=== PATIENT | male | born 1990 | race Hispanic/Latino ===

== ENCOUNTER 2019-05-20 10:16 | Emergency (ER) | payer OTHER ==
--- NOTE | 2019-05-20 10:27 | EDM.PDOC ---
ED HPI GENERAL MEDICAL PROBLEM - General Chief Complaint: Head Injury Stated Complaint: HEAD INJURY Time Seen by Provider: 05/20/19 10:27 - History of Present Illness INITIAL COMMENTS - FREE TEXT/NARRATIVE: 29-year-old male presents the emergency room with a head injury. At approximately 830 this morning the patient slipped on the ice fell backwards striking his head on the hard ground. He was definitely startled he is unsure about LOC. He is having increasing dizziness he had blurred vision immediately after this occurred but this seems to be getting better. No prior history of head injury. Patient denies any neck pain or other injuries associated with this unfortunate fall. Headache Pain Score (Numeric/FACES): 9 - Related Data Allergies Allergy/AdvReac Type Severity Reaction Status Date / Time No Known Allergies Allergy Verified 05/20/19 10:24 Home Meds: Home Meds . [No Known Home Meds] 05/20/19 [History] Past Medical History - Past Health History Medical/Surgical History: Denies Medical/Surgical History - Infectious Disease History Infectious Disease History: Reports: None Social & Family History - Tobacco Use Smoking Status *Q: Current Every Day Smoker Years of Tobacco use: 9 Packs/Tins Daily: 0.7 - Caffeine Use Caffeine Use: Reports: Coffee, Energy Drinks - Recreational Drug Use Recreational Drug Use: No ED ROS GENERAL - Review of Systems Review Of Systems: See Below Constitutional: Reports: No Symptoms HEENT: Reports: Vertigo, Vision Change Respiratory: Reports: No Symptoms Cardiovascular: Reports: No Symptoms GI/Abdominal: Reports: No Symptoms : Reports: No Symptoms Musculoskeletal: Reports: No Symptoms Neurological: Reports: Headache (Is getting worse over time with increasing dizziness) ED EXAM, HEAD INJURY - Physical Exam Exam: See Below Exam Limited By: No Limitations General Appearance: Alert, Mild Distress (The dizziness) Head: Normocephalic Eyes: Bilateral Eye: EOMI, Normal Inspection, PERRL Ears: Normal External Exam, Normal Canal, TM Obscured by Cerumen Nose: Normal Inspection, Normal Mucousa, No Blood Throat/Mouth: Normal Inspection, Normal Lips, Normal Teeth, Normal Gums, Normal Oropharynx, Normal Voice, No Airway Compromise Neck: Non-Tender, Full Range of Motion, Normal Alignment, Normal Inspection Respiratory: No Respiratory Distress, Lungs Clear, Normal Breath Sounds Cardiovascular: Regular Rate, Rhythm, No Edema, No Murmur GI/Abdominal Exam: Normal Bowel Sounds, Soft, Non-Tender Back Exam: Normal Inspection. No: CVA Tenderness (L), CVA Tenderness (R) Extremities: Normal Inspection Neurologic: Other (Nerves II through XII grossly intact. All muscle groups in the upper and lower extremities are equal and appropriate bilaterally. Deep tendon reflexes are equal and appropriate at the brachioradialis and patella tendons bilaterally cerebellar testing is entirely within normal limits.) - Ismael Coma Score Best Eye Response (Ismael): (4) Open Spontaneously Best Verbal Response (Ismael): (5) Oriented Best Motor Response (Ismael): (6) Obeys Commands Course - Vital Signs Last Recorded V/S: Last Vital Signs Temp 36.7 C 05/20/19 10:21 Pulse 78 05/20/19 10:21 Resp 16 05/20/19 10:21 BP 153/90 H 05/20/19 10:21 Pulse Ox 96 05/20/19 10:21 - Orders/Labs/Meds Orders: Active Orders 24 hr Category Date Time Status Acetaminophen [Tylenol] Med 05/20/19 12:33 Once 975 mg PO NOW ONE - Re-Assessments/Exams Free Text/Narrative Re-Assessment/Exam: 05/20/19 12:[address] was unremarkable. The patient still has a headache we will give him some Tylenol and discharge. Departure - Departure Time of Disposition: 12:35 Disposition: Home, Self-Care 01 Clinical Impression: Head injury, Concussion injury of brain - Discharge Information Referrals: PCP,None [Primary Care Provider] - Forms: ED Department Discharge, ED Return to Work/School Form Additional Instructions: Return to the emergency room with any questions problems or worsening symptoms. No strenuous activity no prolonged screen time such as TV or computer use. Get as much rest as you need. 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 Sepsis Event Note - Evaluation Sepsis Screening Result: No Definite Risk - Focused Exam Vital Signs: Vital Signs Temp Pulse Resp BP Pulse Ox 05/20/19 10:21 36.7 C 78 16 153/90 H 96 Date Exam was Performed: 05/20/19 Time Exam was Performed: 12:34 - My Orders Last 24 Hours: My Active Orders 05/20/19 12:33 Acetaminophen [Tylenol] 975 mg PO NOW ONE - Assessment/Plan Last 24 Hours: My Active Orders 05/20/19 12:33 Acetaminophen [Tylenol] 975 mg PO NOW ONE
--- NOTE | 2019-05-20 11:37 | CT ---
Head CT Technique: Multiple axial sections through the brain were obtained. Intravenous contrast was not utilized. Comparison: No previous intracranial imaging is available. Findings: Ventricles along with basal cisterns and sulci over the convexities appear within normal limits for the patient's age. No abnormal parenchymal densities are seen. No evidence of intracranial hemorrhage. No midline shift or mass effect is seen. Visualized paranasal sinuses and mastoid sinuses are clear. No acute calvarial abnormality is appreciated. Impression: 1. Nothing acute is appreciated on noncontrast head CT exam. Diagnostic code #1 This report was dictated in [place] Standard Time
[2019-05-20] MEDS ORDERED: Acetaminophen 325 MG Tab PO ONE (12:33)
== END 2019-05-20 12:53 | disposition home or self-care (01) ==
LOC: JD.ED 10:16
DX: S06.0X9A Concussion with loss of consciousness of unspecified duration, initial encounter (principal); F17.210 Nicotine dependence, cigarettes, uncomplicated; W00.0XXA Fall on same level due to ice and snow, initial encounter
CPT/HCPCS: 70450; 99283; A9270; 99282

== ENCOUNTER 2019-05-27 08:32 | Emergency (ER) | payer OTHER ==
[2019-05-27] MEDS ORDERED: Ketorolac 30 MG/ML SDV IVPUSH ONE (08:59)
[2019-05-27] MEDS ORDERED: diphenhydrAMINE 50 MG/ML SDV IVPUSH ONE (09:00)
[2019-05-27] MEDS ORDERED: Ondansetron 4 MG/2 ML SDV IVPUSH ONE (09:00)
[2019-05-27] MEDS ORDERED: Sodium Chloride 0.9% 1,000 ML IV SCH (09:00)
[2019-05-27] MEDS ORDERED: Sodium Chloride 0.9% 10 ML Syringe FLUSH PRN (09:01)
--- NOTE | 2019-05-27 09:06 | EDM.PDOC ---
ED HPI GENERAL MEDICAL PROBLEM - General Chief Complaint: Headache Stated Complaint: HEADACHE Time Seen by Provider: 05/27/19 08:54 Source of Information: Reports: Patient History Limitations: Reports: No Limitations - History of Present Illness INITIAL COMMENTS - FREE TEXT/NARRATIVE: Patient is a 29-year-old male who presents with complaints of intermittent headache for the last week. He describes the pain as a dull ache occasional sharpness to the top of his head. Patient was seen in this ER 1 week ago after falling and hitting his posterior head on cement. CT scan of the head was done at that time and showed no acute abnormalities. Patient states he does have a history of migraines, however this is worse than his past headaches. He has been using Aleve as needed, however states it has not been fully relieving his pain. His last dose of Aleve was yesterday evening. He denies any vision changes, dizziness, nausea, vomiting, tinnitus or paresthesias. Head Pain Score (Numeric/FACES): 7 - Related Data Allergies Allergy/AdvReac Type Severity Reaction Status Date / Time No Known Allergies Allergy Verified 05/27/19 08:49 Home Meds: Home Meds . [No Known Home Meds] 05/20/19 [History] Past Medical History - Past Health History Medical/Surgical History: Denies Medical/Surgical History - Infectious Disease History Infectious Disease History: Reports: None Social & Family History - Tobacco Use Smoking Status *Q: Current Every Day Smoker Years of Tobacco use: 10 Packs/Tins Daily: 0.5 - Caffeine Use Caffeine Use: Reports: None - Recreational Drug Use Recreational Drug Use: No ED ROS GENERAL - Review of Systems Review Of Systems: Comprehensive ROS is negative, except as noted in HPI. - Physical Exam Exam: See Below Exam Limited By: No Limitations General Appearance: Alert, WD/WN, No Apparent Distress Eye Exam: Bilateral Eye: PERRL Head Exam: Atraumatic, Normocephalic Respiratory/Chest: No Respiratory Distress, Lungs Clear, Normal Breath Sounds, No Accessory Muscle Use, Chest Non-Tender Cardiovascular: Normal Peripheral Pulses, Regular Rate, Rhythm, No Murmur Neuro Exam (Abbreviated): Alert, Oriented, Normal Cognition, Normal Reflexes, No Motor/Sensory Deficits Psychiatric: Normal Affect, Normal Mood Skin Exam: Warm, Dry, Intact, Normal Color, No Rash Course - Vital Signs Last Recorded V/S: Last Vital Signs Temp 97.8 F 05/27/19 08:45 Pulse 78 05/27/19 08:45 Resp 18 05/27/19 08:45 BP 146/87 H 05/27/19 08:45 Pulse Ox 97 05/27/19 08:45 - Orders/Labs/Meds Orders: Active Orders 24 hr Category Date Time Status Peripheral IV Care [RC] . DIRECTED Care 05/27/19 09:01 Active Sodium Chloride 0.9% [Normal Saline] 1,000 ml Med 05/27/19 09:00 Active IV ASDIRECTED Sodium Chloride 0.9% [Saline Flush] Med 05/27/19 09:01 Active 10 ml FLUSH ASDIRECTED PRN Peripheral IV Insertion Adult [OM.PC] Stat Oth 05/27/19 09:01 Ordered Medication Orders Sodium Chloride (Normal Saline) 1,000 mls @ 999 mls/hr IV ASDIRECTED LIDA Last Admin: 05/27/19 09:29 Dose: 999 mls/hr Sodium Chloride (Saline Flush) 10 ml FLUSH ASDIRECTED PRN PRN Reason: Keep Vein Open Last Admin: 05/27/19 09:30 Dose: 10 ml Meds: Medications Generic Name Dose Route Start Last Admin Trade Name Freq PRN Reason Stop Dose Admin Sodium Chloride 1,000 mls @ 999 mls/hr 05/27/19 09:00 05/27/19 09:29 Normal Saline IV 999 mls/hr ASDIRECTED LIDA Administration Sodium Chloride 10 ml 05/27/19 09:01 05/27/19 09:30 Saline Flush FLUSH 10 ml ASDIRECTED PRN Administration Keep Vein Open Discontinued Medications Generic Name Dose Route Start Last Admin Trade Name Freq PRN Reason Stop Dose Admin Acetaminophen 975 mg 05/27/19 10:17 05/27/19 10:57 Tylenol PO 05/27/19 10:18 975 mg ONETIME ONE Administration Diphenhydramine HCl 25 mg 05/27/19 09:00 05/27/19 09:30 Benadryl IVPUSH 05/27/19 09:01 25 mg ONETIME ONE Administration Hydromorphone HCl 0.5 mg 05/27/19 10:17 05/27/19 10:58 Dilaudid IVPUSH 05/27/19 10:18 0.5 mg ONETIME ONE Administration Ketorolac Tromethamine 30 mg 05/27/19 08:59 05/27/19 09:29 Toradol IVPUSH 05/27/19 09:00 30 mg ONETIME ONE Administration Ondansetron HCl 4 mg 05/27/19 09:00 05/27/19 09:30 Zofran IVPUSH 05/27/19 09:01 4 mg ONETIME ONE Administration - Re-Assessments/Exams Free Text/Narrative Re-Assessment/Exam: Patient is a 29-year-old male who presents with complaints of headache since last week. He was seen in this ER 1 week ago after falling and striking his head on the cement. Head CT was done at that time and was normal. He has been using Aleve off and on since that time, however this has not been fully relieving his symptoms. I have ordered a 1 L bolus of normal saline, Toradol IV , Zofran, and Benadryl. 05/27/19 10:17 On reassessment, patient states his headache has improved a little but is still present. I did order Tylenol 975 mg as well as Dilaudid 0.5 mg IV. 05/27/19 11:23 Patient verbalized that his headache is greatly improved at this time. Rates pain 1 out of 10. He does have an appointment with the [facility] tomorrow for a follow-up. I will discharge him home with a note for work for today. We'll recommend that he continues to use Tylenol or ibuprofen as needed for the headache and keep his appointment tomorrow for follow-up. Departure - Departure Time of Disposition: 11:24 Disposition: Home, Self-Care 01 Condition: Fair Clinical Impression: Headache Qualifiers: Headache type: post-traumatic Headache chronicity pattern: unspecified pattern Intractability: not intractable Qualified Code(s): G44.309 - Post-traumatic headache, unspecified, not intractable - Discharge Information *PRESCRIPTION DRUG MONITORING PROGRAM REVIEWED*: No *COPY OF PRESCRIPTION DRUG MONITORING REPORT IN PATIENT ODALIS: No Instructions: General Headache Without Cause, [id number] Referrals: PCP,None [Primary Care Provider] - Forms: ED Department Discharge, ED Return to Work/School Form Additional Instructions: You were seen in the emergency department today for an recurring headache for the last week. It is likely that her headaches are related to the concussion that he sustained last week. He did receive a liter of IV fluids, Zofran for nausea, Toradol, Dilaudid and Tylenol for pain while in the emergency department. You did verbalize that this improved your pain. We recommend that you avoid bright lights and rest for the rest of the day. You may use [id number] Tylenol or ibuprofen as needed for any pain. Keep your appointment for a follow-up tomorrow with the occupational health clinic at [place]. A note has been provided off from work for you for today. If you experience any new or worsening symptoms, please do not hesitate to return to the emergency department. Sepsis Event Note - Evaluation Sepsis Screening Result: No Definite Risk - Focused Exam Vital Signs: Vital Signs Temp Pulse Resp BP Pulse Ox 05/27/19 08:45 97.8 F 78 18 146/87 H 97 Date Exam was Performed: 05/27/19 Time Exam was Performed: 11:24 - My Orders Last 24 Hours: My Active Orders 05/27/19 09:00 Sodium Chloride 0.9% [Normal Saline] 1,000 ml IV ASDIRECTED 05/27/19 09:01 Peripheral IV Care [RC] . DIRECTED Sodium Chloride 0.9% [Saline Flush] 10 ml FLUSH ASDIRECTED PRN Peripheral IV Insertion Adult [OM.PC] Stat - Assessment/Plan Last 24 Hours: My Active Orders 05/27/19 09:00 Sodium Chloride 0.9% [Normal Saline] 1,000 ml IV ASDIRECTED 05/27/19 09:01 Peripheral IV Care [RC] . DIRECTED Sodium Chloride 0.9% [Saline Flush] 10 ml FLUSH ASDIRECTED PRN Peripheral IV Insertion Adult [OM.PC] Stat
[2019-05-27] MEDS ORDERED: HYDROmorphone 0.5 MG/0.5 ML Syringe IVPUSH ONE (10:17)
[2019-05-27] MEDS ORDERED: Acetaminophen 325 MG Tab PO ONE (10:17)
== END 2019-05-27 11:35 | disposition home or self-care (01) ==
LOC: JD.ED 08:32
DX: G44.309 Post-traumatic headache, unspecified, not intractable (principal); F17.210 Nicotine dependence, cigarettes, uncomplicated
CPT/HCPCS: 96361; 96374; 96375; 99283; A9270; J1170; J1200; J1885; J2405; J7030

== ENCOUNTER 2021-08-14 01:19 | Emergency (ER) | payer SELFPAY | END 2021-08-14 02:45 | LOC: JD.ED 01:19 | DX: F10.129 Alcohol abuse with intoxication, unspecified (principal); Z72.0 Tobacco use | CPT/HCPCS: 99283; 99284 ==

== ENCOUNTER 2022-06-05 21:33 | Emergency (ER) | payer OTHER ==
[2022-06-05] MEDS ORDERED: Ondansetron 4 MG/2 ML SDV IVPUSH ONE (22:01)
[2022-06-05] MEDS ORDERED: Sodium Chloride 0.9% 1,000 ML IV ONE (22:02)
[2022-06-05] MEDS ORDERED: HYDROmorphone 1 MG/ML Syringe IVPUSH ONE (22:02)
[2022-06-05 22:43] LABS: CORONAVIRUS COVID-19 NAA NEGATIVE (NEGATIVE)
[2022-06-05] MEDS ORDERED: Cefepime 2 GM in Sodium Chloride 0.9% 50 ML IV ONE (23:12)
[2022-06-05] MEDS ORDERED: Lactated Ringers 3,000 ML IV ONE (23:14)
[2022-06-05] MEDS ORDERED: Cefepime 2 GM Vial ONE (23:57)
[2022-06-05] MEDS ORDERED: Sodium Chloride 0.9% 100 ML ONE (23:57)
[2022-06-06] MEDS ORDERED: Sodium Chloride 0.9% 250 ML ONE (00:12)
== END 2022-06-06 05:00 | disposition home or self-care (01) ==
LOC: JD.ED 21:33
DX: J18.9 Pneumonia, unspecified organism (principal); Z20.822 Contact with and (suspected) exposure to COVID-19
CPT/HCPCS: 0241U; 36415; 36600; 70450; 71045; 80053; 81001; 82803; 83605; 83735; 84484; 85025; 85610; 85730; 87040; 93005; 96361; 96365; 96367; 96375; 99284; J0692; J1170; J2405; J3370; J7030; J7050; J7120; 93010; 99291